=== PATIENT | male | born 1995 | race American Indian/Alaskan Native ===

== ENCOUNTER 2019-01-26 08:55 | Emergency (ER) | payer SELFPAY ==
[2019-01-26] MEDS ORDERED: SOLU-Medrol IV ONE (09:34)
[2019-01-26] MEDS ORDERED: CLEOCIN 900 MG/50 mL 900 MG/50 ML BAG IV ONE (09:34)
[2019-01-26] MEDS ORDERED: NACL 0.9% 1000 ML 1,000 ML IV ONE (09:39)
--- NOTE | 2019-01-26 09:40 | Emergency Department Report ---
HPI - General Chief Complaint: Dental/Oral Time Seen by Provider: 01/26/19 09:23 - HPI HPI: 23-year-old after [place] male presents to the emergency department with a three-day history of sore throat, body aches, nasal congestion, ear pain. The patient is able to swallow but has some pain and difficulty doing so. She's been taking Goody's powder for his symptoms without much relief. No obvious fever. Denies any past medical history. No recent travel or sick contacts home. He does not have a primary care physician. ED Past Medical Hx - Past Medical History Previous Medical History?: No - Surgical History Past Surgical History?: No - Social History Smoking Status: Current Every Day Smoker Substance Use Type: Marijuana - Medications Home Medications: Home Medications Medication Instructions Recorded Confirmed Last Taken Type Amoxicillin/Potassium Clav 1 each PO BID #20 tablet 01/26/19 Unknown Rx [Augmentin 875-125 Tablet] ED Review of Systems ROS: Stated complaint: STREP THROAT Other details as noted in HPI Comment: All other systems reviewed and negative Constitutional: denies: chills, fever Eyes: denies: eye pain, vision change ENT: ear pain, throat pain, congestion Respiratory: denies: cough, shortness of breath Cardiovascular: denies: chest pain, palpitations Gastrointestinal: denies: abdominal pain, vomiting Musculoskeletal: myalgia. denies: joint swelling Skin: denies: rash, lesions Neurological: denies: weakness, numbness Physical Exam - Physical Exam Vital Signs: Vital Signs 01/26/19 09:02 Temperature 99.4 F Pulse Rate 126 H Respiratory 16 Rate Blood Pressure 149/102 O2 Sat by Pulse 100 Oximetry Physical Exam: GENERAL: The patient is well-developed well-nourished. HENT: Normocephalic. Atraumatic. Patient has moist mucous membranes. Bilateral tonsillar hypertrophy and erythema. Right-sided tonsillar exudate. No drooling or trismus. Normal-appearing bilateral external ear canal and tympanic membranes. EYES: Extraocular motions are intact. Pupils equal reactive to light bilaterally. NECK: Supple. Trachea is midline. Left-sided tender but mobile submandibular lymph node. CHEST/LUNGS: Clear to auscultation. There is no respiratory distress noted. HEART/CARDIOVASCULAR: Regular. There is mild tachycardia. There is no murmur. ABDOMEN: Abdomen is soft, nontender. Patient has normal bowel sounds. There is no abdominal distention. SKIN: Skin is warm and dry. NEURO: The patient is awake, alert, and oriented. The patient is cooperative. The patient has no focal neurologic deficits. Normal speech. MUSCULOSKELETAL: There is no tenderness or deformity. There is no evidence of acute injury. ED Course Vital Signs 01/26/19 09:02 Temperature 99.4 F Pulse Rate 126 H Respiratory 16 Rate Blood Pressure 149/102 O2 Sat by Pulse 100 Oximetry ED Medical Decision Making - Lab Data Result diagrams: 01/26/19 09:47 - Medical Decision Making This patient presents with some pain and difficulty with swallowing. He has significant tonsillar hypertrophy to the point where they are touching in the midline and there is some erythema with a right-sided exudate. Patient does not have any drooling or trismus. He may have some pain with swallowing but he is seen swallowing his own secretions as well as taking some medication. An IV was placed and the patient was given a dose of clindamycin, Solu-Medrol and IV fluid resuscitation. Upon reevaluation he is showing some signs of improvement. Rapid strep test was positive. CBC did not show any significant leukocytosis. His vital signs are stable except for some mild tachycardia but he is afebrile. The tachycardia also improved after the treatment given. Patient does not have any abnormal voice or any stridor. He appears safe for discharge home at this time. He will be placed on antibiotics and has been given referrals for primary care. He has been instructed to return to the emergency department immediately with any worsening of his symptoms with any acute distress. - Differential Diagnosis strep pharyngitis, mononucleosis, viral URI, peritonsillar abscess Critical Care Time: No Critical care attestation.: If time is entered above; I have spent that time in minutes in the direct care of this critically ill patient, excluding procedure time. ED Disposition Clinical Impression: Strep pharyngitis, Nasal congestion Otalgia Qualifiers: Laterality: bilateral Qualified Code(s): H92.03 - Otalgia, bilateral Disposition: DC-01 TO HOME OR SELFCARE Is pt being admited?: No Condition: Stable Instructions: Strep Throat (ED), Earache (ED) Additional Instructions: Please follow-up with a primary care physician in the next few days. Take the antibiotics as prescribed. Return to the emergency department immediately with any worsening of her symptoms, inability to swallow your own secretions or drink fluids (to stay hydrated), or with any acute distress. Prescriptions: Amoxicillin/Potassium Clav [Augmentin 875-125 Tablet] 1 each PO BID #20 tablet Referrals: [facility] [Outside] - 2-3 Days MARYANN MONTOYA DO [Staff Physician] - 2-3 Days Time of Disposition: 16:12
[2019-01-26 10:02] LABS: Basophils % (Auto) 0.1 % (0.0-1.8); Eosinophils % (Auto) 0.4 % (0.0-4.3); Hematocrit 32.3 % (35.5-45.6); Hemoglobin 11.1 gm/dl (11.8-15.2); Lymphocytes # (Auto) 3.7 K/mm3 (1.2-5.4); Lymphocytes % (Auto) 32.5 % (13.4-35.0); Mean Corpuscular HGB Conc 34 % (32-34); Mean Corpuscular Volume 90 fl (84-94); Monocytes # (Auto) 1.1 K/mm3 (0.0-0.8); Monocytes % (Auto) 9.4 % (0.0-7.3); Platelet Count 186 K/mm3 (140-440); Red Blood Count 3.61 M/mm3 (3.65-5.03); Red Cell Distribution Width 14.2 % (13.2-15.2)
[2019-01-26 11:18] VITALS: BP 141/98
[2019-01-26] MEDS ORDERED: LIDOCAINE VISCOUS 2% PO ONE (11:19)
== END 2019-01-26 11:43 | disposition home or self-care (01) ==
LOC: ED 08:55
DX: J02.0 Streptococcal pharyngitis (principal); H92.03 Otalgia, bilateral; F17.200 Nicotine dependence, unspecified, uncomplicated; F12.10 Cannabis abuse, uncomplicated
CPT/HCPCS: 36415; 85025; 86308; 87430; J2930; J7030; 96365; 96375